=== PATIENT | male | born 1990 | race Caucasian/White ===

== ENCOUNTER 2025-02-11 16:54 | Emergency (ER) | payer MEDICAID ==
[~2025-02-11] VITALS: Ht 172.7 cm; Wt 86.4 kg
[~2025-02-11 16:54] MED LIST: CEPH-558 PO; DIVA-112 PO; DOXY-354 PO; QUET300T2 PO; SERT-162 PO
[2025-02-11 17:36] VITALS: TEMP 98.6
[2025-02-11 18:17] LABS: PLATELET COUNT (AUTO) 289 K/uL (150-450); RED BLOOD CELL COUNT(AUTO) 5.07 MIL/uL (4.50-5.90); RED CELL DISTRIBUTION WIDTH 12.2 % (11.5-14.5); WHITE BLOOD COUNT (AUTO) 13.6 K/uL (4.5-11.0)
[2025-02-11 18:27] LABS: CALCIUM, TOTAL 9.6 mg/dL (8.8-10.5); CREATININE 1.18 mg/dL (0.60-1.30); GLOMERULAR FILTR. RATE CALC > 60 mL/min (>60); GLUCOSE,RANDOM 85 mg/dL (70-110); SODIUM SERUM 140 mmol/L (136-145); UREA NITROGEN, BLOOD 13 mg/dL (7-18)
[2025-02-11 18:34] LABS: ASPARTATE AMINOTRANSFERASE 18 U/L (15-37); TOTAL PROTEIN, SERUM 8.0 g/dL (6.4-8.2); VALPROIC ACID 10 mcg/mL (50-100)
[2025-02-11 18:52] LABS: ALCOHOL, BLOOD (SERUM) < 3 mg/dL (0-10)
[2025-02-11 19:01] LABS: BAND NEUTROPHILS % (MANUAL) 5 % (0-5); LYMPHOCYTES % (MANUAL) 15 % (22-44); MONOCYTES % (MANUAL) 6 % (2-9); SEGMENTED NEUTROPHILS % 74 % (40-70)
[2025-02-11 19:52] VITALS: BP 121/84; PULSE 102; RESP 18; O2SAT 98
== END 2025-02-11 21:02 | disposition home or self-care (01) ==
LOC: EMS 16:54
DX: T48.3X1A Poisoning by antitussives, accidental (unintentional), initial encounter (principal); F41.9 Anxiety disorder, unspecified; F31.9 Bipolar disorder, unspecified; F20.9 Schizophrenia, unspecified; R11.0 Nausea; F17.210 Nicotine dependence, cigarettes, uncomplicated; F10.90 Alcohol use, unspecified, uncomplicated; Z79.899 Other long term (current) drug therapy; Y90.9 Presence of alcohol in blood, level not specified; Y92.89 Other specified places as the place of occurrence of the external cause
CPT/HCPCS: 99284; 80048; 80076; 80164; 85025; 36415; 93005; G0480; G0481